=== PATIENT | female | born 1985 | race Caucasian/White ===

== ENCOUNTER 2020-12-01 09:33 | Outpatient (CLI) | payer SELFPAY | END 2020-12-01 09:34 | disposition home or self-care (01) | LOC: CSHWCC 09:33 | PROVIDERS: ATTEND Nurse Practitioner Family | DX: T81.89XD Other complications of procedures, not elsewhere classified, subsequent encounter (principal); L03.818 Cellulitis of other sites; N61.1 Abscess of the breast and nipple; G89.11 Acute pain due to trauma; E66.8 Other obesity | CPT/HCPCS: 97605; 99203; G0463 ==

== ENCOUNTER 2020-12-04 15:01 | Outpatient (CLI) | payer SELFPAY | END 2020-12-04 15:02 | disposition home or self-care (01) | LOC: CSHWCC 15:01 | PROVIDERS: ATTEND Nurse Practitioner Family | DX: T81.89XD Other complications of procedures, not elsewhere classified, subsequent encounter (principal); G89.11 Acute pain due to trauma; L03.818 Cellulitis of other sites; N61.1 Abscess of the breast and nipple; E66.8 Other obesity | CPT/HCPCS: 97605 ==

== ENCOUNTER 2020-12-11 11:19 | Outpatient (CLI) | payer SELFPAY | END 2020-12-11 11:20 | disposition home or self-care (01) | LOC: CSHWCC 11:19 | PROVIDERS: ATTEND Nurse Practitioner Family | DX: T81.89XD Other complications of procedures, not elsewhere classified, subsequent encounter (principal); L03.818 Cellulitis of other sites; N61.1 Abscess of the breast and nipple; G89.11 Acute pain due to trauma; E66.8 Other obesity | CPT/HCPCS: 97605 ==

== ENCOUNTER 2020-12-14 10:11 | Outpatient (CLI) | payer OTHER | END 2020-12-14 10:12 | disposition home or self-care (01) | LOC: CSHWCC 10:11 | PROVIDERS: ATTEND Nurse Practitioner Family | DX: T81.89XD Other complications of procedures, not elsewhere classified, subsequent encounter (principal); N61.1 Abscess of the breast and nipple; L03.818 Cellulitis of other sites; G89.11 Acute pain due to trauma; E66.8 Other obesity | CPT/HCPCS: 97605 ==

== ENCOUNTER 2020-12-18 11:37 | Outpatient (CLI) | payer SELFPAY | END 2020-12-18 11:38 | disposition home or self-care (01) | LOC: CSHWCC 11:37 | PROVIDERS: ATTEND Nurse Practitioner Family | DX: T81.89XD Other complications of procedures, not elsewhere classified, subsequent encounter (principal); N61.1 Abscess of the breast and nipple; L03.818 Cellulitis of other sites; G89.11 Acute pain due to trauma; E66.8 Other obesity | CPT/HCPCS: 97605 ==

== ENCOUNTER 2020-12-21 13:10 | Outpatient (CLI) | payer SELFPAY | END 2020-12-21 13:11 | disposition home or self-care (01) | LOC: CSHWCC 13:10 | PROVIDERS: ATTEND Nurse Practitioner Family | DX: T81.89XD Other complications of procedures, not elsewhere classified, subsequent encounter (principal); L03.818 Cellulitis of other sites; N61.1 Abscess of the breast and nipple; G89.11 Acute pain due to trauma; E66.8 Other obesity | CPT/HCPCS: 97605 ==

== ENCOUNTER 2020-12-25 11:05 | Outpatient (CLI) | payer SELFPAY | END 2020-12-25 11:06 | disposition home or self-care (01) | LOC: CSHWCC 11:05 | PROVIDERS: ATTEND Nurse Practitioner Family | DX: T81.89XD Other complications of procedures, not elsewhere classified, subsequent encounter (principal); L03.818 Cellulitis of other sites; N61.1 Abscess of the breast and nipple; G89.11 Acute pain due to trauma; E66.8 Other obesity | CPT/HCPCS: 97605 ==

== ENCOUNTER 2020-12-28 10:55 | Outpatient (CLI) | payer SELFPAY | END 2020-12-28 10:56 | disposition home or self-care (01) | LOC: CSHWCC 10:55 | PROVIDERS: ATTEND Nurse Practitioner Family | DX: T81.89XD Other complications of procedures, not elsewhere classified, subsequent encounter (principal); N61.1 Abscess of the breast and nipple; L03.818 Cellulitis of other sites; E66.8 Other obesity; G89.11 Acute pain due to trauma | CPT/HCPCS: 87070; 87205; 97605 ==

== ENCOUNTER 2021-01-01 11:21 | Outpatient (CLI) | payer SELFPAY | END 2021-01-01 11:22 | disposition home or self-care (01) | LOC: CSHWCC 11:21 | PROVIDERS: ATTEND Nurse Practitioner Family | DX: T81.89XD Other complications of procedures, not elsewhere classified, subsequent encounter (principal); G89.11 Acute pain due to trauma; L03.818 Cellulitis of other sites; N61.1 Abscess of the breast and nipple; E66.8 Other obesity | CPT/HCPCS: 97605 ==

== ENCOUNTER 2021-01-04 13:06 | Outpatient (CLI) | payer SELFPAY | END 2021-01-04 13:07 | disposition home or self-care (01) | LOC: CSHWCC 13:06 | PROVIDERS: ATTEND Nurse Practitioner Family | DX: T81.89XD Other complications of procedures, not elsewhere classified, subsequent encounter (principal); G89.11 Acute pain due to trauma; N61.1 Abscess of the breast and nipple; L03.818 Cellulitis of other sites; E66.8 Other obesity | CPT/HCPCS: 11042; 97605 ==

== ENCOUNTER 2021-01-11 11:34 | Outpatient (CLI) | payer SELFPAY | END 2021-01-11 11:35 | disposition home or self-care (01) | LOC: CSHWCC 11:34 | PROVIDERS: ATTEND Nurse Practitioner Family | DX: T81.89XD Other complications of procedures, not elsewhere classified, subsequent encounter (principal); N61.1 Abscess of the breast and nipple; L03.818 Cellulitis of other sites; G89.11 Acute pain due to trauma; E66.8 Other obesity | CPT/HCPCS: 97605 ==